=== PATIENT | female | born 1990 | race Two or more races ===

== ENCOUNTER → 2024-05-08 | Day surgery (SDC) | payer SELFPAY ==
[2024-05-07 14:39] LABS: Basophils # (auto) 0 10 ^3/uL (0-0.2); Basophils % (auto) 0.2 % (0.0-2.0); Eosinophils # (auto) 0 10 ^3/uL (0-0.8); Hemoglobin 11.8 g/dL (12.2-16.2); Lymphocytes # (auto) 3.2 10 ^3/uL (0.4-5.4); Lymphocytes % (auto) 29.3 % (10.0-50.0); Mean Corpuscular Hemoglobin 24.4 pg (28.0-32.0); Mean Corpuscular Hgb Conc. 32.9 g/dL (32.0-36.0); Mean Corpuscular Volume 74.1 fL (80.0-100.0); Monocytes # (auto) 0.5 10 ^3/uL (0-1.3); Neutrophils # (auto) 7.2 10 ^3/uL (1.6-8.6); Neutrophils % (auto) 65.5 % (37.0-80.0); Nucleated Red Blood Cells % 0.1 %; Platelet Count (auto) 261 10^3/uL (140-450); Red Blood Cells 4.86 10^6/uL (4.0-5.20); Red Cell Distribution Width 15.5 % (11.8-14.3)
[2024-05-07 14:43] LABS: Urine Bacteria FEW /hpf (None Seen); Urine Blood 3+ /uL (Negative); Urine Clarity Clear (Clear); Urine Color Colorless (Yellow); Urine Protein, UAD Negative (Negative); Urine Specific Gravity 1.011 (1.001-1.035); Urine Squamous Epithelial Cell FEW /hpf (<5); Urine Urobilinogen Normal (Negative); Urine WBC 16 /HPF (0-5)
[2024-05-07 14:50] LABS: INR 1.06 (0.9-1.15); Prothrombin Time 11.2 sec (9.3-11.8)
[2024-05-07 15:05] LABS: Alanine Aminotransferase 28 U/L (7-40); Albumin 4.6 g/dL (3.2-4.8); Anion Gap 10 (5-15); Aspartate Aminotransferase 14 U/L (13-40); BUN/Creatinine Ratio 20.8 (10.0-20.0); Blood Urea Nitrogen 10 mg/dL (9-23); Carbon Dioxide 24 mmol/L (20-31); Chloride 106 mmol/L (98-107); Glucose 101 mg/dL (74-106); Potassium 3.6 mmol/L (3.5-5.1); Sodium 140 mmol/L (136-145); Total Protein 8.1 g/dL (5.7-8.2)
[2024-05-07 15:06] LABS: Bilirubin, Total 0.5 mg/dL (0.2-1.0)
[2024-05-07 15:09] LABS: Alkaline Phosphatase 149 U/L (46-116); Calcium 10.4 mg/dL (8.7-10.4)
[~2024-05-08] VITALS: Ht 162.6 cm; Wt 158.3 kg
[~2024-05-08] MED LIST: ALBUAER3 IN; ARIP15TA48 PO; ATOR20TA PO; CHOLTAB12 PO; DICY20TA PO; FAMOTIDINE (10MG/ML) 2ML VL IV ONE; GLYCOPYRROLATE 0.2 MG/ML 1ML VIAL ONE; KRIL1CAP14 PO; LEVO25TA6 PO; LIDOCAINE 2% (LOCAL ANESTH.) PF 5ml SDV ONE; MAGN400T40 OR; MEDR5TAB28 OR; MIDAZOLAM HCL 2MG/2ML 2ml VIAL (1mg/ml) ONE; MIRT-93 PO; ONDANSETRON HCL 4 MG/2 ML VIAL ONE; POTA25TA23 PO; PROPOFOL 10 MG/ML 20 ML IV ONE; SUMA50TA2 PO; fentaNYL CITRATE 100 MCG/2 ML VL ONE
--- NOTE | 2024-05-08 13:11 | DVHHP2 ---
GI H&P Pre-Op Assessment Date: 05/08/24 Chief complaint: Abdominal pain, diarrhea alternating constipation HPI: per clinic note Past medical history: per clinic note Past surgical history: per clinic note Family history: per clinic note Physical exam: General: NAD, AAOX3 HEENT: PERRL, no scleral icterus, normal hearing, gums without lesions or bleeding, oropharynx clear without erythema or exudate. Neck: Supple without enlargement of the thyroid, or lymphadenopathy. Chest: Normal size and shape, no tenderness, lung killian clear to auscultation and percussion, nonlabored breathing. Heart: RRR, no murmur Abdomen: non-distended, no tenderness to palpation, +BS, no hepatosplenomegaly Extremities: no edema Neurological: CN II-XII intact, sensation intact in all extremities, 5+ strength in all extremities Skin: No rashes, No jaundice Assessment: - Abdominal pain, diarrhea alternating constipation Plan: - EGD - Colonoscopy - Risks (bleeding, infection, perforation, reaction to sedation medications and cardiopulmonary arrest) and benefit of the procedure were explained to patient. Patient agrees to undergo the procedure. ALEXA LOPEZ MD May 08, 2024 13:11
[2024-05-08 14:40] VITALS: PULSE 106; RESP 20; TEMP 97.3; O2SAT 95
--- NOTE | 2024-05-08 14:43 | DVHOP2 ---
Operative Report DATE OF OPERATION: 05/08/24 PROCEDURE: Upper Endoscopy. PREOPERATIVE INDICATION: The patient is a 34 -year-old female undergoing endoscopy for abdominal pain. POSTOPERATIVE DIAGNOSES: 1. Normal EGD. Gastric biopsies with cold biopsy forceps were obtained to evaluate for H pylori. PROCEDURE PERFORMED BY: Javon Restrepo SCOPE: Olympus videoendoscope. ASA CLASS: 3 PREOPERATIVE MEDICATIONS: MAC with Dr Sebastian PROCEDURE IN DETAIL: After obtaining an informed consent, the patient was placed on left lateral decubitus position. The patient was then sedated with the above medications. A bite block was placed between her teeth. The endoscope was then passed through the oropharynx, into the esophagus, and through the stomach and pylorus up to the second and third part of the duodenum. The duodenal was normal in appearance. The stomach was normal in appearance. Gastric biopsy obtained to evaluate for H pylori. The GE junction was normal in appearance at 40 cm. The esophagus was normal in appearance. The endoscope was then withdrawn. The patient tolerated the procedure well without difficulty. COMPLICATIONS : None SPECIMENS: Gastric biopsies DISPOSITION: D/C to home PLAN: 1. Await for biopsy result JAVON RESTREPO MD May 08, 2024 14:42
--- NOTE | 2024-05-08 14:44 | DVHOP2 ---
Operative Report DATE OF OPERATION: 05/08/24 PROCEDURE: Colonoscopy. PREOPERATIVE INDICATION: The patient is a 34 -year-old female undergoing colonoscopy for abdominal pain. POSTOPERATIVE DIAGNOSES: 1. Few scattered small diverticulosis. 2. Normal colonic mucosa PROCEDURE PERFORMED BY: Javon Restrepo M.D. SCOPE: Olympus videocolonoscope. ASA CLASS: 3 PREOPERATIVE MEDICATIONS: MAC with Dr Sebastian PROCEDURE IN DETAIL: After obtaining an informed consent, the patient was placed on left lateral decubitus position. She was then sedated with the above medications. A rectal examination was performed that was normal. The colonoscope was then passed through the anus into the rectosigmoid and through the descending, transverse, and ascending colon up to the cecum with visualization of the appendiceal orifice, base of the cecum and the ileocecal valve. No mass or polyp was observed. There was a few scattered small diverticulosis. The colonic mucosa was normal. The colonoscope was then withdrawn. The patient tolerated the procedure well without difficulty. WITHDRAWAL TIME: 6 minutes QUALITY OF THE PREP: [place] Bowel Prep score: 7 COMPLICATIONS : None SPECIMENS: None DISPOSITION: D/C to home PLAN: 1. Patient will follow up in clinic. JAVON RESTREPO MD May 08, 2024 14:44
--- NOTE | 2024-05-08 14:44 | DVHDS2 ---
Physician Discharge Progress N Final Diagnosis: Normal EGD Diverticulosis Operations or Procedures: Operations or Procedures EGD with biopsy Colonoscopy Condition on Discharge: Good Disposition: Home Discharge Instructions: Diet: Regular Activity: No Restrictions, As Tolerated Medications: Resume previous home medications Follow Up Care: Discharge Statement: "Patient was advised to return to the ER or call 911 if any headaches, dizziness, shortness of breath, chest pain, abdominal pain, bleeding, fevers, or worsening of medical condition. Patient was counseled about treatment plan, medications, possible side effects, patientverbalized understanding. All questions were answered to the best of my ability. This discharge took greater then 30 minutes in planning, reviewing documentation, counseling the patient, and discussing with other team members." ALEXA LOPEZ MD May 08, 2024 14:44
[2024-05-08 15:10] VITALS: BP 127/71; PULSE 103; RESP 19; O2SAT 95
== END | disposition home or self-care (01) ==
LOC: GI 09:20
PROVIDERS: ATTEND Internal Medicine Gastroenterology
DX: K59.00 Constipation, unspecified (principal); K57.30 Diverticulosis of large intestine without perforation or abscess without bleeding; K29.50 Unspecified chronic gastritis without bleeding; R19.7 Diarrhea, unspecified; R10.9 Unspecified abdominal pain; E11.9 Type 2 diabetes mellitus without complications; G47.33 Obstructive sleep apnea (adult) (pediatric); E78.5 Hyperlipidemia, unspecified; E06.3 Autoimmune thyroiditis; F31.89 Other bipolar disorder; Z79.890 Hormone replacement therapy; Z79.84 Long term (current) use of oral hypoglycemic drugs; Z79.899 Other long term (current) drug therapy; Z87.442 Personal history of urinary calculi; Z98.890 Other specified postprocedural states; Z88.0 Allergy status to penicillin; Z88.8 Allergy status to other drugs, medicaments and biological substances; Z91.013 Allergy to seafood; Z91.041 Radiographic dye allergy status
CPT/HCPCS: 36415; 43239; 45378; 80053; 81001; 84702; 85025; 85610; 85730; 88305; 88312; 88342; J2003; J2250; J2405; J2704; J3010; J3490; J7030